=== PATIENT | male | born 1980 | race African-American/Black ===

== ENCOUNTER 2021-07-08 20:37 | Emergency (ER) | payer MEDICAID ==
[~2021-07-08] VITALS: Ht 185.4 cm; Wt 62.0 kg
[2021-07-08 22:58] LABS: CLARITY URINE CLEAR (CLEAR); COLOR URINE YELLOW (YELLOW); KETONES URINE 1+ (NEGATIVE); LEUKOCYTE ESTERASE URINE TRACE (NEGATIVE); NITRITE URINE NEGATIVE (NEGATIVE); OCCULT BLOOD URINE TRACE (NEGATIVE); PROTEIN URINE 2+ (NEGATIVE); SPECIFIC GRAVITY URINE 1.026 (1.005-1.030)
[2021-07-08] MEDS ORDERED: ACETAMINOPHEN 500MG TABLET PO ONE (23:15)
[2021-07-09] MEDS ORDERED: AZIT250T12 MT (02:59)
[2021-07-09] MEDS ORDERED: ALBU18HF2 IH (02:59)
[2021-07-09] MEDS ORDERED: MED4 MT (02:59)
[2021-07-09 03:00] VITALS: BP 139/72
== END 2021-07-09 03:00 | disposition home or self-care (01) ==
LOC: ER 20:37
DX: U07.1 COVID-19 (principal); J45.909 Unspecified asthma, uncomplicated
CPT/HCPCS: 81003; 87426; 99283